=== PATIENT | male | born 1975 | race Two or more races ===

== ENCOUNTER 2017-07-05 07:46 | Day surgery (SDC) | payer BC ==
[~2017-07-05] VITALS: Ht 170.2 cm; Wt 122.5 kg
[2017-07-05] VITALS (8 sets, daily range): BP systolic 140–150; BP diastolic 78–96
[~2017-07-05 07:46] MED LIST: ceFAZolin sod 1 GM in NS 55 ML IVPB ONE
[2017-07-05] MEDS ORDERED: NKM (08:06)
[2017-07-05 08:44] LABS: BASOPHILS % (AUTO) 1.1 % (0.0-2.0); LYMPHOCYTES % (AUTO) 29.6 % (20.0-45.0); MEAN CORPUSCULAR HEMOGLOBIN 30.2 PG (27.0-31.0); MEAN CORPUSCULAR HGB CONC 33.2 G/DL (32.0-36.0); MEAN CORPUSCULAR VOLUME 91 FL (80-99); MEAN PLATELET VOLUME 6.3 FL (6.5-10.1); MONOCYTES % (AUTO) 9.5 % (1.0-10.0); NEUTROPHILS % (AUTO) 53.8 % (45.0-75.0); PLATELET COUNT 316 K/UL (150-450); RED BLOOD COUNT 4.95 M/UL (4.70-6.10); RED CELL DISTRIBUTION WIDTH 11.6 % (11.6-14.8); WHITE BLOOD COUNT 5.3 K/UL (4.8-10.8)
[2017-07-05 08:57] LABS: ANION GAP 10 (5-15); CARBON DIOXIDE 26 mEQ/L (20-30); CHLORIDE 105 mEQ/L (98-107); GLOMERULAR FILTRATION RATE > 60 mL/min (>60); HEMOLYSIS 2; POTASSIUM 3.7 mEQ/L (3.4-4.9); SODIUM 141 mEQ/L (135-145)
--- NOTE | 2017-07-05 09:07 | Anethesia Preoperative Eval ---
Anesthesia Pre-op PMH/ROS General Date of Evaluation: Jul 05, 2017 Time of Evaluation: 08:55 Anesthesiologist: AUSTEN ASA Score: ASA 2 Mallampati Score Class I : Soft palate, uvula, fauces, pillars visible Class II: Soft palate, uvula, fauces visible Class III: Soft palate, base of uvula visible Class IV: Only hard plate visible Mallampati Classification: Class II Surgeon: NANO Diagnosis: BUNION Surgical Procedure: BUNIONECTOMY Anesthesia History: none Family History: no anesthesia problems Allergies: Coded Allergies: No Known Allergies (Unverified , 07/03/17) Past Medical History Pulmonary: Reports: other - BRONCHITIS, THROAT PROBLEM, RESPIRATORY DISORDER Other: obesity Anesthesia Pre-op Phys. Exam Physician Exam Last Vital Signs Date Time Temp Pulse Resp B/P (MAP) Pulse Ox O2 Delivery O2 Flow Rate FiO2 07/05/17 08:55 97.5 90 18 142/96 98 Room Air Constitutional: NAD Cardiovascular: RRR Respiratory: CTA Airway Exam Mallampati Score: Class II MO: full ROM: full Anesthesia Pre-op A/P Labs Hematology Test 07/05/17 08:30 White Blood Count 5.3 K/UL (4.8-10.8) Red Blood Count 4.95 M/UL (4.70-6.10) Hemoglobin 14.9 G/DL (14.2-18.0) Hematocrit 45.0 % (42.0-52.0) Mean Corpuscular Volume 91 FL (80-99) Mean Corpuscular Hemoglobin 30.2 PG (27.0-31.0) Mean Corpuscular Hemoglobin Concent 33.2 G/DL (32.0-36.0) Red Cell Distribution Width 11.6 % (11.6-14.8) Platelet Count 316 K/UL (150-450) Mean Platelet Volume 6.3 FL (6.5-10.1) L Neutrophils (%) (Auto) 53.8 % (45.0-75.0) Lymphocytes (%) (Auto) 29.6 % (20.0-45.0) Monocytes (%) (Auto) 9.5 % (1.0-10.0) Eosinophils (%) (Auto) 6.0 % (0.0-3.0) H Basophils (%) (Auto) 1.1 % (0.0-2.0) Coagulation Test 07/05/17 08:30 Prothrombin Time 10.0 SEC (9.30-11.50) Prothromb Time International Ratio 1.0 (0.9-1.1) Activated Partial Thromboplast Time 25 SEC (23-33) Chemistry Test 07/05/17 08:30 Sodium Level 141 mEQ/L (135-145) Potassium Level 3.7 mEQ/L (3.4-4.9) Chloride Level 105 mEQ/L (98-107) Carbon Dioxide Level 26 mEQ/L (20-30) Anion Gap 10 (5-15) Blood Urea Nitrogen 13 mg/dL (7-23) Creatinine 1.0 mg/dL (0.7-1.2) Estimat Glomerular Filtration Rate > 60 mL/min (>60) Glucose Level 106 mg/dL (74-106) Calcium Level 9.0 mg/dL (8.6-10.2) Risk Assessment & Plan Assessment: ASA 2 Plan: MAC Status Change Before Surgery: Tarsha Perez M.D. Jul 05, 2017 09:07
[2017-07-05] MEDS ORDERED: fentaNYL 100 mcg/2 mL IV PRN (09:15)
[2017-07-05] MEDS ORDERED: Hydromorphone 0.5mg/0.5ml inj IVP PRN (09:15)
[2017-07-05] MEDS ORDERED: Midazolam 2mg/2ml Inj IVP PRN (09:15)
[2017-07-05] MEDS ORDERED: oxyCODONE HCL/Acetaminophen 5/325mg ORAL PRN (09:15)
[2017-07-05] MEDS ORDERED: Lidocaine 1% Plain 30 ml INJ ONE (09:19)
[2017-07-05] MEDS ORDERED: Bupivacaine 0.25% Inj 30ml INJ ONE (09:19)
[2017-07-05] MEDS ORDERED: Bacitracin 50000 Units Vial ONE (09:19)
[2017-07-05] MEDS ORDERED: Dexamethasone 4mg/ml vial ONE (09:20)
[2017-07-05] MEDS ORDERED: Betadine 10% Oint 15gm TOPIC ONE (09:20)
[2017-07-05] MEDS ORDERED: Propofol 10mg/ml 20ml IV ONE (09:30)
[2017-07-05] MEDS ORDERED: LR 1000ml ONE (09:30)
[2017-07-05] MEDS ORDERED: Midazolam 2mg/2ml Inj ONE (09:30)
[2017-07-05] MEDS ORDERED: Sterile Water Irrig 1000ml IRRIG ONE (09:30)
[2017-07-05] MEDS ORDERED: fentaNYL 250mcg/5ml ONE (09:30)
[2017-07-05] MEDS ORDERED: Ketorolac 30mg Inj ONE (09:30)
--- NOTE | 2017-07-05 09:33 | Pre-Procedure Note/Attestation ---
Pre-Procedure Note/Attestation Complete Prior to Procedure Planned Procedure: left Procedure Narrative: correction of bunion with osteotomy and crew fixation left foot Indications for Procedure Pre-Operative Diagnosis: painful bunion , gouty arthritis left 1st mpj Attestation I attest that I discussed the nature of the procedure; its benefits; risks and complications; and alternatives (and the risks and benefits of such alternatives ), prior to the procedure, with the patient (or the patient's legal inside technical sales representative). I attest that, if there was a reasonable possibility of needing a blood transfusion, the patient (or the patient's legal inside technical sales representative) was given the [facility] standardized written summary, pursuant to the Mert Tolley Blood Safety Act ([place] Health and Safety Code # 1645, as amended). I attest that I re-evaluated the patient just prior to the surgery and that there has been no change in the patient's H&P, except as documented below: MEAGAN MCGILL DPM Jul 05, 2017 09:33
--- NOTE | 2017-07-05 10:07 | Diagnostic Imaging Report ---
Indication: Pain Comparison: None Findings: 3 views of the left foot were obtained. There is a deformity of the head of the fourth metatarsal. The acuity of this finding is uncertain. This could very well be on the basis of an old fracture. There is also joint space narrowing of the fourth MTP joint. Please correlate clinically. Os trigonum noted. Soft tissues are unremarkable. Impression: Age-indeterminate deformity of the head of the fourth metatarsal. This is probably an old injury. Please correlate clinically
[2017-07-05] MEDS ORDERED: NS Irrig 1000ml IRRIG ONE (10:24)
--- NOTE | 2017-07-05 11:12 | Brief Operative Note ---
Immediate Post Operative Note Operative Note Pre-op Diagnosis: painful bunion , gouty arthritis left 1st mpj Procedure: correction of bunion with osteotomy and screw fixation Post-op Diagnosis: bunion left foot Post-op Diagnosis: same as pre-op Surgeon: meagan evangelista dpm Anesthesiologist: dr collazo Anesthesia: MAC Specimen: yes Complications: none Condition: stable Fluids: non Estimated Blood Loss: minimal Drains: none Tourniquet time: 73 Implant(s) used?: Yes MEAGAN EVANGELISTA DPM Jul 05, 2017 11:12
--- NOTE | 2017-07-05 11:23 | Immediate Post-Op Evaluation ---
Immediate Post-Op Evalulation Immediate Post-Op Evalulation Procedure: bunionectomy left foot Date of Evaluation: Jul 05, 2017 Time of Evaluation: 11:17 IV Fluids: 800 LR Blood Pressure Systolic: 145 Blood Pressure Diastolic: 80 Pulse Rate: 78 Respiratory Rate: 18 O2 Sat by Pulse Oximetry: 100 Temperature (Fahrenheit): 97.3 Pain Score (1-10): 1 Nausea: No Vomiting: No Complications NONE Patient Status: awake Hydration Status: adequate Drug: CEFAZOLIN 3 GRAMS Given Within 1 Hr of Incision: Yes Time Given: 09:37 Tarsha Carver M.D. Jul 05, 2017 11:23
--- NOTE | 2017-07-05 11:25 | 48 Hour Post Anesthesia Eval ---
Post Anesthesia Evaluation Procedure: bunionectomy left foot Date of Evaluation: Jul 05, 2017 Time of Evaluation: 11:24 Blood Pressure Systolic: 143 0: 72 Pulse Rate: 72 Respiratory Rate: 18 Temperature (Fahrenheit): 97.3 O2 Sat by Pulse Oximetry: 99 Airway: patent Nausea: No Vomiting: No Pain Intensity: 2 Hydration Status: adequate Mental Status/LOC: patient returned to baseline Follow-up care needed: N/A Tarsha Carver M.D. Jul 05, 2017 11:25
--- NOTE | 2017-07-05 11:59 | Diagnostic Imaging Report ---
Indication: Pain Comparison: None Findings: 3 views of the left foot were obtained. Osteotomy of the distal part of the first metatarsal with resection of the bunion noted. Screw fixation noted. Impression: Confirmation of surgery and postoperative findings
--- NOTE | 2017-07-05 23:30 | Pre-op HX & Phy Repo 2 SIG ---
DATE OF ADMISSION: 07/05/2017 PODIATRIC PREOPERATIVE HISTORY AND PHYSICAL PHYSICIAN: Reid Null D.P.M. HISTORY OF PRESENT ILLNESS: This is a 42-year-old male with progressively worsening pain and deformity of the left foot. The left foot has a painful medial eminence at the left first metatarsal head. The pain and deformity has been progressively worsened over the past year. He has tried numerous conservative measurements including padding, offloading, shoe gear modification, activity modification as well as orthotics, but continued to experience daily pain. He also has frequent gout attacks to the area. He reports no recent illness. No recurrent nausea, vomiting, fever, chills, or shortness of breath. PAST MEDICAL HISTORY: Positive for gout and elevated uric acid. PAST SURGICAL HISTORY: No pertinent finding. MEDICATIONS: Denies. ALLERGIES: No known drug allergies. SOCIAL HISTORY: Denies alcohol, tobacco, or illicit drug use. FAMILY HISTORY: No pertinent findings. PHYSICAL EXAMINATION: VITAL SIGNS: Temperature 97.7 degrees, pulse 62, respiratory rate 18, blood pressure is 120/70, and O2 is 98.9% on room temperature. DERMATOLOGICAL: No open lesion. Mild hyperkeratosis at the medial aspect of the first metatarsophalangeal joint plus edema and mild cuffing. NEUROLOGICAL: Sensation is intact to light touch. VASCULAR: Dorsalis pedis and posterior tibial artery are palpable. No edema or erythema noted. MUSCULOSKELETAL: Medial bony prominence at the first metatarsophalangeal head and is tender to palpation. The hallux is abducted away from the midline of the body and abutting against second toe. Full muscle strength noted bilaterally. LABORATORY DATA: Checked and assessed. ASSESSMENT AND PLAN: This is a 42-year-old male with left foot progressively worsened pain, bunion deformity, and gouty arthritis. The patient has tried numerous conservative measures, however, he is still experiencing daily pain. Recommended surgery as a next step in management. The risks, benefits, and alternatives were discussed with the patient in detail, who understands and would like to proceed with surgical intervention. All the patient's questions and concerns have been addressed. Reid Null D.P.M. DR: Yannick JOB#: [id number] CC:
--- NOTE | 2017-07-06 04:15 | Operative Note - Dictated ---
DATE OF OPERATION: 07/05/2017 SURGEON: Reid Null D.P.M. ANESTHESIOLOGIST: Dr. Carver. PREOPERATIVE DIAGNOSES: 1. Left foot painful bunion deformity. 2. Gouty arthritis. POSTOPERATIVE DIAGNOSES: 1. Left foot painful bunion deformity. 2. Gouty arthritis. PROCEDURE: Left foot bunionectomy with osteotomy and a screw fixation. HEMOSTASIS: Pneumatic ankle tourniquet set at 250 mmHg. ESTIMATED BLOOD LOSS: Less than 10 mL. MATERIAL USED: A 3-inch, 26 mm cannulated Vilex screw, 2-0 Vicryl, 3-0 Vicryl, 4-0 Vicryl, and 4-0 nylon. Injectables: An 18 mL of 1:1 mixture of 0.25% plain Marcaine and 1% plain lidocaine was injected to the left foot preoperatively. Intraoperatively, the patient was injected with 8 mL of 0.25% plain Marcaine that included 2 mL of dexamethasone 4 mg/mL. PATHOLOGY: Bone, which was resected from the first left metatarsal head, was sent for pathology and for analysis. DRESSING: Incision sites were covered with Betadine ointment, Xeroform, Kerlix, and Coban. COMPLICATIONS: None. CONDITION: Stable. Description Of The Procedure: The patient was brought into the operating room and was assisted onto the operating table in the supine position. He was padded well to avoid the area of excessive pressure. The patient was then given 1 g of Ancef before the start of surgery. The time-out was performed. Cotton padding and pneumatic ankle tourniquet was placed about the patient's left ankle. Following IV sedation, a local anesthetic block was administered to the left foot in a Carver block fashion consisting of 20 mL of 1:1 mixture of 0.25% plain Marcaine and 1% plain lidocaine. The foot was then scrubbed, prepared, and draped in the usual aseptic manner. Attention was directed to the left foot. An Esmarch bandage was then utilized to exsanguinate the patient's left foot, and the pneumatic ankle tourniquet was then inflated to 250 mmHg. Local anesthesia was checked by pinching the patient's skin using a rat-tooth forceps. The patient did not react to the stimulus. The skin marking pen was then used to draw the planned incision site at the dorsal medial aspect of the first metatarsophalangeal joint on the left foot. A #15 blade was used to make an incision approximately 5 cm along the path of the deformity. A new blade was then used to continue sharp and blunt dissection, which was carried down to the lateral of the joint capsule with care taking to retract all vital neurovascular structures. At this time, bleeders were ligated. It was noticed that the patient was bleeding and there might be some calcification of the artery or failure of tourniquet. Regardless of either, it was eventually stopped. A #15 blade was then utilized to perform a lateral soft tissue release from the base of the proximal phalanx. With all vitals retracted, a linear capsulotomy was performed exposing the head of the metatarsal. He has noticed with multiple focal area of white patchy substance, which could be tophaceous gout on the head. They were cleaned up or excised. At this time, using a sagittal saw, the medial eminence was osteotomized and passed from the field to be sent to pathology. A modified Reverdin osteotomy was made at the first metatarsophalangeal joint with a sagittal saw. The apex of the osteotomy was distal and the base of the osteotomy was proximal. The capital fragment was created. The capital fragment was then shifted laterally to a more corrected position. The range of motion was checked and it was noticed to be smooth and full range of motion. At this time, a premeasured K-wire was driven from proximal, dorsal, medial to distal, plantar, lateral crossing the osteotomy site. The measurement was done and noticed to be 26 mm. At this time, countersink was utilized to decrease the palpability of the head. A 26 mm cannulated screw was then inserted with a premeasured K-wire with the same orientation and the screw was inserted. It was noticed to have a great dehydrogenation converter helper and compaction of the bones was noted. The K-wire was then removed. A sagittal saw was then utilized to resect overhanging bone on the proximal head of the metatarsal proximal to the osteotomy. This overhanging was removed. A cystic bony void was noticed, which left a concavity at the head area. This should not become a biomechanical problem and is purely cosmetic on x-ray. The area was then smoothed out using a rasp. The sharp edges were then smoothed out. Visual inspection for proper alignment was made. A copious amount of irrigation with normal saline and bacitracin was used to flush the surgical site. It was noted that more bleeders were encountered. At this time, it was noted that the tourniquet might be leaking. All bleeders were then cauterized. The joint capsule was then closed using 2-0 Vicryl and 3-0 Vicryl. Subsequently, the subcutaneous tissue was closed using 4-0 Vicryl. Then, the skin was closed using nonabsorbable 4-0 nylon in a mattress fashion. The surgical site was then injected with 8 mL mixture of 2 mL of 4 mg/mL dexamethasone and 6 mL of 0.25% Marcaine plain. The incision was then covered with Betadine ointment, Xeroform, 4 x 4 gauze, Kerlix, and Coban. The distal aspect of the toe was left uncovered. The tourniquet was then deflated and hyperemia was noticed to digits 1 through 5. The toe was pink and capillary refill time was less than 2 seconds. The patient tolerated the surgery and anesthesia well without any complications. He was then transported to the postoperative care unit and stated no pain. The patient was reminded to take antibiotics, ibuprofen, and hydrocodone as directed. He was also instructed to keep his foot elevated and keep dressing clean, dry, and intact. Radiograph crutches and postoperative shoe were ordered. The patient is able to partially bear weight, but he was advised to minimize walking and standing and ambulation for at least 24 hours. The patient states that he is going out of town this weekend. The patient was advised to be very careful in terms of putting weight or activity on the left foot. The patient to be discharged once medically cleared by the anesthesiologist and follow up with Dr. Null in the next clinical week. Reid Null D.P.M. DR: YOON JOB#: [id number] CC:
== END 2017-07-05 12:35 | disposition home or self-care (01) ==
LOC: SUR 07:46
DX: M21.612 Bunion of left foot (principal); M10.9 Gout, unspecified; I10 Essential (primary) hypertension; E66.9 Obesity, unspecified; Z68.41 Body mass index [BMI] 40.0-44.9, adult
CPT/HCPCS: 28296; 36415; 73630; 80048; 85025; 85610; 85730; C1713; J0690; J1100; J1885; J2001; J2250; J2704; J3010; J3490; J7120; 94003; 94150